=== PATIENT | female | born 1985 | race African-American/Black ===

== ENCOUNTER 2022-03-02 07:36 | Emergency (ER) | payer OTHER, SELFPAY ==
[2022-03-02] VITALS (7 sets, daily range): BP systolic 119–137; BP diastolic 68–75; PULSE 91–102; RESP 20–24; TEMP 37.3; O2SAT 95–99
[2022-03-02] MEDS: IPRATROPIUM BR 0.02% INH SOLN 0.5 MG/2.5 ML VIAL INHALATION (08:26)
[2022-03-02] MEDS: ALBUTEROL SULFATE NEB 2.5 MG/3 ML INH INHALATION (08:26)
[2022-03-02 08:36] LABS: Influenza A QL RT-PCR Negative (Negative); Influenza B QL RT-PCR Negative (Negative); RSV RNA, RT-PCR Negative (Negative); SARS-CoV-2 RNA PCR Negative
--- NOTE | 2022-03-02 09:35 | ED.URI ---
HPI - URI/Sore Throat General Chief Complaint: Upper Respiratory Infection Stated Complaint: flu symptoms Time Seen by Provider: 03/02/22 08:05 History of Present Illness HPI Narrative: Pt presents with SOB and wheezing. Pt seen at [facility] last week and was diagnosed with URI. Pt sent home on inhaler. Pt says she is persistently SOB and has minimal cough. Pt denies fever. Pt is 27 weeks . Pt got some relief with neb in route per EMS. Related Data Allergies Allergy/AdvReac Type Severity Reaction Status Date / Time No Known Allergies Allergy Verified 03/02/22 07:47 Review of Systems Review of Systems: All systems reviewed & are unremarkable except as noted in HPI and below PMFSH Social History Social History Smoking status: Never smoker Alcohol intake: never Exam Const: General: healthy appearing and no acute distress Nutritional Appearance: well nourished Orientation/consciousness: patient oriented x3 Limitations: no limitations HENMT: Head: normal to inspection Mouth: Yes Normal oral and palatal mucosa present Throat: posterior oropharynx normal Eyes: Conjunctivae: conjunctivae normal Neck: Neck: normal visual inspection and no lymphadenopathy Chest: Chest palpation & inspection: normal inspection of the chest Resp: Effort & Inspection: normal respiratory effort Auscultation: wheezes Cardio: Rate: regular rate Rhythm: regular rhythm GI: GI Palp: Yes Soft to palpation Auscultation: normal bowel sounds Skin: General skin exam: normal color Rashes: no rashes Neuro: General: patient oriented x3, moves all extremities, no meningeal signs and no focal motor deficits Cranial nerves: Yes Nystagmus not present Speech: normal speech Extrem: General: normal to inspection Psych: Mental Status: mental status grossly normal Affect: normal affect Course Vital Signs Vital signs: Vital Signs Temperature 99.1 F 03/02/22 07:42 Pulse Rate 102 H 03/02/22 07:42 Respiratory Rate 24 H 03/02/22 07:42 Blood Pressure 119/69 03/02/22 07:42 Pulse Oximetry 98 03/02/22 07:42 Oxygen Delivery Room Air 03/02/22 07:42 Temperature 99.1 F 03/02/22 07:42 Pulse Rate 91 03/02/22 10:28 Respiratory Rate 22 H 03/02/22 10:28 Blood Pressure 137/75 03/02/22 10:28 Pulse Oximetry 95 03/02/22 10:28 Oxygen Delivery Room Air 12/21/22 10:00 MDM - URI/Sore Throat Lab Data Labs: Lab Results 03/02/22 Range/Units 07:56 Influenza A (RT-PCR) Negative (Negative) Influenza B (RT-PCR) Negative (Negative) RSV (RT-PCR) Negative (Negative) SARS-CoV-2 RNA (RT-PCR) Negative Discharge Plan Discharge Clinical Impression: Upper respiratory infection, Asthma Patient Disposition: Home, Self-Care Condition: Improved Instructions: Antibiotic Form, Asthma (DC), Upper Respiratory Infection (DC) Prescriptions: New prednisone 50 mg tablet 50 mg PO DAILY Qty: 5 0RF azithromycin [Zithromax Z-Raymond] 250 mg tablet See Rx Instructions .ROUTE .COMPLEX Qty: 6 0RF Rx Instructions: For 250 mg dose pack: take 500 mg today (day 1), then 250 mg for 4 days (days 2-5)
== END 2022-03-02 10:28 | disposition home or self-care (01) ==
LOC: ANHED 09:59
PROVIDERS: Emergency Provider Emergency Medicine
DX: O99.512 Diseases of the respiratory system complicating pregnancy, second trimester (principal); J06.9 Acute upper respiratory infection, unspecified; J45.909 Unspecified asthma, uncomplicated; Z3A.27 27 weeks gestation of pregnancy; Z20.822 Contact with and (suspected) exposure to COVID-19
CPT/HCPCS: 87637; 94640; 99283